=== PATIENT | male | born 1970 | race Hispanic/Latino ===

== ENCOUNTER 2020-02-05 06:50 | Inpatient (IN) ==
[2020-02-05] MEDS ORDERED: TYLENOL PO ONE (07:25)
[2020-02-05] MEDS ORDERED: MOTRIN PO ONE (07:29)
[2020-02-05 07:49] LABS: INFLUENZA A NEGATIVE (NEGATIVE); INFLUENZA B NEGATIVE (NEGATIVE)
--- NOTE | 2020-02-05 07:59 | Diag Imaging Result Doc PS360 ---
EXAM: CHEST-1 VIEW INDICATION: fever TECHNIQUE: One view COMPARISON: None. FINDINGS: There is elevation of the left hemidiaphragm. There is suggestion of mild atelectasis at the left lung base. There is no discrete pleural fluid collection or pneumothorax. The cardiomediastinal silhouette and central vasculature are grossly unremarkable. IMPRESSION: Suggestion of mild atelectasis at the left lung base. No definite acute pathology by plain radiograph, otherwise. Electronically signed by Nelson Alvarado 02/05/2020 7:57 AM
[2020-02-05 08:01] LABS: INR 1.15; PROTIME 15.3 Seconds (11.0-16.0)
[2020-02-05 08:02] LABS: AGAP 20; ALBUMIN 4.2 g/dL (3.5-5.0); ALKALINE PHOSPHATASE 82 U/L (32-122); BUN 8 mg/dL (8-22); CALCIUM 8.7 mg/dL (8.8-10.2); CHLORIDE 94 mmol/L (98-107); CK PROFILE 94 U/L (24-204); COSMO 273; CREATININE 0.8 mg/dL (0.7-1.2); ESTIMATED GFR > 60; GLUCOSE 149 mg/dL (70-104); GOT 33 U/L (10-34); GPT 26 U/L (10-44); POTASSIUM 4.3 mmol/L (3.5-5.1); SODIUM 136 mmol/L (136-145); TCO2 22 mmol/L (25-35); TOTAL PROTEIN 7.2 g/dL (6.3-8.3)
[2020-02-05 08:03] LABS: BASO# 0.01 X1000 (0.0-0.2); BASO% 0.1 % (0.0-0.8); EOS# 0.03 X1000 (0.0-0.7); EOS% 0.2 % (0.0-10.0); HEMATOCRIT 43.9 % (42.0-52.0); HEMOGLOBIN 14.9 g/dL (14.0-18.0); IMM GRAN# 0.06 X1000 (0.0-0.04); IMM GRAN% 0.4 % (0.0-0.5); LYMPH# 0.44 X1000 (1.2-3.4); LYMPH% 2.7 % (20.5-51.1); MCH 31.1 PG (27-31); MCHC 33.9 g/dL (33-37); MCV 91.6 FL (81-99); MONO# 0.07 X1000 (0.11-0.59); MONO% 0.4 % (1.7-9.3); MPV 10.5 FL (7.4-10.4); NEUT# 15.75 X1000 (1.4-6.5); NEUT% 96.2 % (42.2-75.2); PLT 160 X1000 (130-400); RBC 4.79 XMIL (4.7-6.1); RDW 12.6 % (11.5-14.5); WBC 16.36 X1000 (4.8-10.8)
[2020-02-05] MEDS ORDERED: NS 1,000 ML IV ONE ×2 (08:13→08:14)
[2020-02-05] MEDS ORDERED: ZOSYN 3.375 GM in NS 50 ML IV ONE (08:22)
[2020-02-05 08:31] LABS: MONO 2 % (1-9); SEGS 97 % (42-75)
--- NOTE | 2020-02-05 09:12 | Diag Imaging Result Doc PS360 ---
EXAM: CT ABD/PELVIS W/IV CONT ONLY INDICATION: rlq pain TECHNIQUE: This exam was performed using automated exposure control, adjustment of mA or kV according to patient size, and/or use of iterative reconstruction technique. COMPARISON: None. FINDINGS: There are calcified granulomata at the left lung base and there is left basilar scarring. There is a calcified pleural plaque at the left lung base. The gallbladder, liver, spleen, pancreas, adrenal glands, kidneys, and urinary bladder are essentially unremarkable. The appendix is significantly dilated measuring up to 1.5 cm in diameter and there is extensive periappendiceal inflammatory stranding consistent with acute appendicitis. There is nonloculated fluid around the appendix. No well-defined abscess or free abdominal gas is identified to indicate perforation on the current study. There are a few fluid-filled and mildly distended loops of small bowel throughout the abdomen consistent with ileus. The stomach is unremarkable. IMPRESSION: Acute appendicitis with no definite perforation on the current study. Electronically signed by Nelson Alvarado 02/05/2020 9:10 AM
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
[2020-02-05 12:45] LABS: URINE SOURCE CLEAN CATCH
[2020-02-05] MEDS: NS 1,000 ML IV SCH ×2 (12:48→23:23)
[2020-02-05] MEDS: ZOSYN 3.375 GM in NS 50 ML IV SCH ×3 (12:49→23:24)
[2020-02-05 12:55] LABS: BILIRUBIN URINE NEGATIVE (NEGATIVE); BLOOD URINE SMALL (NEGATIVE); COLOR YELLOW; GLUCOSE URINE NEGATIVE (NEGATIVE); KETONE URINE NEGATIVE (NEGATIVE); LEUKOCYTES URINE NEGATIVE (NEGATIVE); NITRITE URINE NEGATIVE (NEGATIVE); PROTEIN URINE 30 mg/dL (NEGATIVE); TURBIDITY URINE CLEAR (CLEAR); UR EPITHELIAL CELLS <10 /HPF (<10); URINE BACTERIA NEGATIVE /HPF; URINE WBC <10 /HPF (<10); UROBILINOGEN URINE NORMAL (NORMAL)
[2020-02-05 13:02] LABS: SP GRAVITY URINE < 1.005
[2020-02-05] MEDS ORDERED: DIPRIVAN 1% ONE (15:34)
[2020-02-05] MEDS ORDERED: FENTANYL ONE (15:34)
[2020-02-05] MEDS ORDERED: REGLAN ONE (19:41)
[2020-02-05] MEDS ORDERED: VERSED ONE (19:41)
[2020-02-05] MEDS ORDERED: PEPCID ONE (19:42)
[2020-02-05] MEDS ORDERED: LR 1,000 ML ONE (19:47)
[2020-02-05] MEDS ORDERED: MARCAINE 0.25% PF/EPI 1:200,000 ONE (19:47)
[2020-02-05] MEDS ORDERED: QUELICIN (DOSE) ONE (20:01)
[2020-02-05] MEDS ORDERED: ROBINUL ONE (20:01)
[2020-02-05] MEDS ORDERED: ZEMURON ONE ×2 (20:01→20:28)
[2020-02-05] MEDS ORDERED: ZOFRAN ONE (20:02)
[2020-02-05] MEDS ORDERED: XYLOCAINE-MPF 2% ONE (20:48)
[2020-02-05 21:27] LABS: URINE SOURCE CATH
[2020-02-05 21:30] LABS: BILIRUBIN URINE NEGATIVE (NEGATIVE); BLOOD URINE SMALL (NEGATIVE); COLOR YELLOW; GLUCOSE URINE NEGATIVE (NEGATIVE); KETONE URINE NEGATIVE (NEGATIVE); LEUKOCYTES URINE NEGATIVE (NEGATIVE); NITRITE URINE NEGATIVE (NEGATIVE); PH URINE 7.5; PROTEIN URINE 30 mg/dL (NEGATIVE); SP GRAVITY URINE 1.029; TURBIDITY URINE CLEAR (CLEAR); UROBILINOGEN URINE 2 mg/dL (NORMAL)
[2020-02-05 21:31] LABS: UR EPITHELIAL CELLS <10 /HPF (<10); URINE BACTERIA NEGATIVE /HPF; URINE RBC 20-40 /HPF (<10); URINE WBC <10 /HPF (<10)
--- NOTE | 2020-02-05 21:39 | OPERATIVE NOTE ---
PROCEDURE DATE: 02/05/2020 PREOPERATIVE DIAGNOSIS: Acute appendicitis. POSTOP DIAGNOSIS: Acute appendicitis. PROCEDURE: Laparoscopic converted to open appendectomy. SURGEON: Richy Lott MD. ANESTHESIA: General. ESTIMATED BLOOD LOSS: 100 mL. COMPLICATIONS: None apparent. SPECIMENS: Appendix. FINDINGS: The appendix was acutely inflamed with severe periappendiceal inflammation necessitating an open operation for safe removal. There was no gross pus or obvious perforation. TECHNIQUE: The patient was brought to the operating room and placed supine on the table. General anesthesia was induced. A Cuevas catheter was placed. He was prepped and draped in usual sterile fashion. 0.25% Marcaine with epinephrine was used to anesthetize our incisions. A 5 mm incision was made in the left lower quadrant. Entry into the peritoneal cavity was obtained under direct vision with the Optiview device. Pneumoperitoneum was established. The camera was inserted. There was no evidence of injury to underlying structures. He was placed in Trendelenburg and left rotation. An incision was made just above the umbilicus through his previous laparotomy scar. There were no adhesions in this area and the 12 mm port was placed under direct vision, another 5 mm incision and port were placed under direct vision in the lower suprapubic midline. I looked in the right lower quadrant and found the area of inflammation of the appendix. I was able to see the base of the appendix inserting into the cecum and it appeared normal. I dissected around the base and transected it with an Endo-LORENZO stapler. I then began mobilizing the appendix off of the cecum and retroperitoneum using hook cautery and the LigaSure device, however the visualization of the tip the appendix was unclear as it was matted under inflammatory rind. I could not get good visualization and mobilization without significant pulling on the tissue so I decided to go ahead and convert to an open procedure. I made an oblique incision in the right lower quadrant with a knife and carried this down through the subcutaneous tissue with cautery. The anterior fascia was opened with cautery. I did encounter the inferior epigastric vessel medially and ligated it proximally and distally with hemostats and 2-0 silk. I then opened the posterior fascia with cautery and entered the peritoneal cavity safely. I was able to reach in with my hand and grab the appendix in inflammatory area and I was able to lift it up and with blunt finger dissection sweep it off of the retroperitoneum some and then I incised the lateral peritoneal attachments over my finger with cautery until the appendix was lifted up, leaving just a small portion of the appendiceal mesentery. I went through this with the LigaSure device, removing the appendix. There was a branch of the appendiceal artery still bleeding and it was suture ligated with a hemostat and 2-0 silk tie and then a 3-0 silk [id number] stick tie. I then irrigated the area copiously with warm saline and suctioned this out. There appeared to be no further bleeding. There were no signs of any leakage from our staple line. All laparotomy pads were removed and I closed the posterior fascia and peritoneum with a running #1 Vicryl and the anterior fascia with a running #1 Maxon. The umbilical fascia was closed with a 0 Vicryl. The skin was closed with skin clips. There were no apparent complications. He was awakened in stable condition and transferred to the recovery room. cc: Richy Lott MD
[2020-02-05] MEDS ORDERED: ZOFRAN IV PRN (22:48)
[2020-02-05] MEDS: DILAUDID IV PRN (23:24)
[2020-02-05] MEDS ORDERED: ZOSYN ONE (23:24)
[2020-02-06] MEDS: ZOSYN 3.375 GM in NS 50 ML IV SCH ×4 (01:15→21:45)
[2020-02-06] MEDS: DILAUDID IV PRN ×4 (02:56→21:46)
[2020-02-06] MEDS: NS 1,000 ML IV SCH (09:23)
[2020-02-06] MEDS: NORCO-10 PO PRN ×2 (12:02→20:34)
[2020-02-06] MEDS ORDERED: ZOSYN ONE (15:42)
--- NOTE | 2020-02-06 17:36 | GENERAL SURGERY PROGRESS NOTE ---
DATE: 02/06/2020 SUBJECTIVE: The patient is doing better today. He denies significant pain, nausea, and vomiting. He has had his Cuevas out. He is tolerating clear liquid diet and he is hungry. He is voiding too. OBJECTIVE: vital signs: T-max 99.7 degrees, current temperature 98.6. Vital signs are stable. General: He is awake and alert in no acute distress. Gastrointestinal: Soft, appropriately tender. Incisional dressings are clean and dry. LABORATORY: His blood culture is positive for gram-negative mattie bacteremia. ASSESSMENT AND PLAN: A 49-year-old male status post open appendectomy now with gram-negative mattie bacteremia. He will remain in the hospital on Zosyn. We will advance his diet. cc: Richy Lott MD
[2020-02-07] MEDS: NS 1,000 ML IV SCH ×4 (00:45→23:37)
[2020-02-07] MEDS: DILAUDID IV PRN ×4 (01:28→23:35)
[2020-02-07] MEDS: ZOSYN 3.375 GM in NS 50 ML IV SCH ×4 (03:56→21:23)
[2020-02-07] MEDS: NORCO-10 PO PRN ×3 (06:52→21:24)
[2020-02-07 07:31] LABS: BASO# 0.01 X1000 (0.0-0.2); BASO% 0.1 % (0.0-0.8); EOS# 0.09 X1000 (0.0-0.7); HEMATOCRIT 41.1 % (42.0-52.0); HEMOGLOBIN 13.4 g/dL (14.0-18.0); IMM GRAN# 0.02 X1000 (0.0-0.04); IMM GRAN% 0.2 % (0.0-0.5); LYMPH# 0.85 X1000 (1.2-3.4); LYMPH% 9.2 % (20.5-51.1); MCH 30.7 PG (27-31); MCHC 32.6 g/dL (33-37); MCV 94.3 FL (81-99); MONO# 0.71 X1000 (0.11-0.59); MONO% 7.7 % (1.7-9.3); MPV 11.1 FL (7.4-10.4); NEUT# 7.53 X1000 (1.4-6.5); NEUT% 81.8 % (42.2-75.2); PLT 129 X1000 (130-400); RBC 4.36 XMIL (4.7-6.1); RDW 13.1 % (11.5-14.5); WBC 9.21 X1000 (4.8-10.8)
[2020-02-07 07:44] LABS: AGAP 10; BUN 4 mg/dL (8-22); CALCIUM 8.3 mg/dL (8.8-10.2); CHLORIDE 98 mmol/L (98-107); COSMO 264; CREATININE 0.7 mg/dL (0.7-1.2); ESTIMATED GFR > 60; GLUCOSE 110 mg/dL (70-104); POTASSIUM 3.7 mmol/L (3.5-5.1); SODIUM 133 mmol/L (136-145); TCO2 25 mmol/L (25-35)
--- NOTE | 2020-02-07 13:11 | GENERAL SURGERY PROGRESS NOTE ---
DATE: 02/07/2020 SUBJECTIVE: The patient is feeling better overall. He did have a high fever of 103 this morning, but that has come back down. He feels sore, but no severe pain. No nausea or vomiting. No chest pain or shortness of breath. No dysuria. He is tolerating his diet. OBJECTIVE: Vital Signs: T-max 103 degrees, current temperature 98.8 degrees, pulse 88, respirations 18, blood pressure 126/73, O2 saturation 92%. General: He is alert and oriented x3. No acute distress. CV: Regular rate and rhythm. Respiratory: Clear bilateral breath sounds. No work of breathing. Gastrointestinal: Soft, appropriately tender. Incisional dressings are dry. No surrounding erythema. LABORATORY DATA: White blood cell count 9.2, hemoglobin 13.4, hematocrit 41.1. Electrolytes are reviewed and unremarkable. ASSESSMENT AND PLAN: A 49-year-old male status post open appendectomy. He also has gram-negative mattie bacteremia. We are awaiting speciation. He is on Zosyn. He is on a regular diet. cc: Richy Lott MD
[2020-02-08] MEDS: NORCO-10 PO PRN ×2 (01:45→08:57)
[2020-02-08] MEDS: ZOSYN 3.375 GM in NS 50 ML IV SCH (03:52)
[2020-02-08] MEDS: DILAUDID IV PRN ×6 (05:20→22:25)
--- NOTE | 2020-02-08 08:13 | GENERAL SURGERY PROGRESS NOTE ---
DATE: 02/08/2020 SUBJECTIVE: The patient has no new complaints today other than some itching in one of his incisions. OBJECTIVE: T-max 100.3 degrees. Current temperature 98.7 degrees, pulse 84, respirations 17, blood pressure 114/66, and O2 saturation 87% this morning but 94% last night. This was on room air.General: He is awake and alert in no acute distress. Respiratory: No increased work of breathing. Gastrointestinal: Soft. Minimally tender. Incision is clean, dry, and intact. No erythema. No drainage. LABORATORY: None today. His previous blood cultures were positive for E. Coli on the . Repeat blood cultures yesterday are pending. ASSESSMENT AND PLAN: A 49-year-old male status post open appendectomy with E. Coli bacteremia. We are switching him to Levaquin due to the antibiotic sensitivities. When he is afebrile for 24 hours, then we will switch him to oral Levaquin, and discharge him home to finish a course for 7 more days. cc: Richy Lott MD
[2020-02-08] MEDS: LEVAQUIN 750 MG/D5W 750 MG/150 ML IVPB IV SCH (08:14)
--- NOTE | 2020-02-08 10:04 | Diag Imaging Result Doc PS360 ---
CHEST-2 VIEWS - 02/08/2020 INDICATION: hypoxia COMPARISON: 02/05/2020 FINDINGS: There are worsening ill-defined interstitial infiltrates in the lung bases bilaterally. There are trace bilateral pleural effusions. Stable left hemidiaphragm elevation. Stable cardiomegaly. IMPRESSION: Worsening ill-defined infiltrates in the lung bases bilaterally. Trace pleural effusions. Electronically signed by Kp Alanis 02/08/2020 10:01 AM
[2020-02-09] MEDS: DILAUDID IV PRN ×2 (05:41→12:06)
[2020-02-09] MEDS: LEVAQUIN 750 MG/D5W 750 MG/150 ML IVPB IV SCH (07:45)
--- NOTE | 2020-02-09 08:00 | Diag Imaging Result Doc PS360 ---
EXAM: CHEST-2 VIEWS 02/09/2020 HISTORY: hypoxia TECHNIQUE: Two views the chest COMMENT: There is increased interstitial opacity in both lung bases with denser areas of consolidation in the medial lower lobes particularly the left lower lobe. There is loculated pleural fluid and/or thickening on the left. These findings were also present on 02/08/2020. There has been some clearing of the right costophrenic sulcus compared to the previous study. Compared to 02/05/2020 the basilar opacities are much worse. IMPRESSION: Pulmonary edema and/or pneumonia. Left pleural effusion. Electronically signed by Hugh Paiz 02/09/2020 7:57 AM
[2020-02-09] MEDS ORDERED: PERCOCET-10 PO PRN (12:40)
--- NOTE | 2020-02-09 13:02 | GENERAL SURGERY PROGRESS NOTE ---
DATE: 02/09/2020 SUBJECTIVE: The patient continues to feel better and better. He denies nausea, vomiting, severe pain, chest pain, shortness of breath, or any significant cough. He is off of his supplemental oxygen. He is eating well and having bowel function. OBJECTIVE: He is afebrile. Vital signs are stable.General: He is awake, alert, no acute distress. Gastrointestinal: Soft, minimally tender. Incision is clean, dry, and intact with scant serous drainage. No erythema. Respiratory: Clear bilateral breath sounds. No work of breathing. CV: Regular rate and rhythm. IMAGING: Chest x-ray this morning shows increased interstitial opacity in both lung bases with denser areas of consolidation in the medial lower lobes, especially on the left. There is loculated pleural fluid and/or thickening on the left, which was also present yesterday. There is some clearing of the right costophrenic sulcus compared to the prior study. Compared to 02/05/2020, the basilar opacities are much worse. These findings were interpreted by the radiologist. On my review, there does not be appear to be significant changes in his chest x-ray now compared to his admission, but again that is my own interpretation and not that of the radiologist. ASSESSMENT AND PLAN: A 49-year-old male status post open appendectomy. He may have perioperative pneumonia or atelectasis and effusions. We will order a CT scan of the chest today for further clarification. He is really doing quite well clinically and I am inclined to send him home within the next 24 hours on oral antibiotics if his CT scan is not too concerning. cc: Richy Lott MD
--- NOTE | 2020-02-09 13:51 | Diag Imaging Result Doc PS360 ---
EXAM: CT THORAX W/WO CONTRAST INDICATION: loculated pleural fluid/thickening, worsening cxr TECHNIQUE: This exam was performed using automated exposure control, adjustment of mA or kV according to patient size, and/or use of iterative reconstruction technique. COMPARISON: None. FINDINGS: There are patchy airspace infiltrates involving both lower lobes and the inferior aspect of the left upper lobe consistent with multilobar pneumonia. There are bilateral small pleural effusions. The fluid on the left appears to be slightly loculated including trace fissural fluid that is somewhat nodular in the left major fissure. There are calcified pleural plaques at the left lung base and at the left apex. There is also a component of atelectasis at both lung bases. There is cardiomegaly. There are mildly prominent hilar lymph nodes are probably reactive. Limited views of the upper abdomen are essentially unremarkable. IMPRESSION: 1.Bilateral multilobar pneumonia, mainly involving both the right and left lower lobes. 2.Bilateral small pleural effusions with partial loculation on the left. 3.Calcified pleural plaques on the left. 4.Cardiomegaly. Electronically signed by Nelson Alvarado 02/09/2020 1:48 PM
[2020-02-09 15:37] VITALS: BP 134/69
--- NOTE | 2020-02-11 15:38 | DISCHARGE SUMMARY ---
ADMISSION DATE: 02/05/2020 DISCHARGE DATE: 02/09/2020 ADMITTING PHYSICIAN: Nancy Villatoro. ADMITTING DIAGNOSIS: Acute appendicitis without obvious perforation. DISCHARGE DIAGNOSES: 1. Acute ruptured appendicitis. 2. Hospital-acquired pneumonia. 3. Escherichia coli bacteremia. HOSPITAL COURSE: The patient was admitted with a 2-day history of right lower quadrant pain, fever, nausea and vomiting. Initial imaging including a chest x-ray and abdominal pelvis CT scan showed mild atelectasis in the left lung base, but no definite acute pathology in the lung and acute appendicitis without definite perforation on CT scan. He underwent laparoscopic converted to open appendectomy on 02/05/2020. For full details of the operation, please see the dictated operative report. Postoperatively, he felt significantly better. On postop day 1, he had no significant pain nausea or vomiting. He was voiding and tolerating a clear liquid diet. His maximum temperature was 99.7 degrees, and other vital signs are stable. His incisions looked good. He was noted to have a positive blood culture for gram-negative rods. He remained on Zosyn. The next day, he was noted to have a fever up to 103. Otherwise, he had no significant pain nausea or vomiting. No chest pain. No shortness of breath. The next day on 02/08/2020 he did have some hypoxia in the morning time and a chest x-ray showed worsening ill-defined infiltrates in bilateral lung bases and trace pleural effusions. Of note his white blood cell count on 02/06 did return to normal. We switched him to Levaquin due to his E coli bacteremia being sensitive to Levaquin. Then on 02/09/2020, another chest x-ray showed pulmonary edema and/or pneumonia with denser consolidation in the medial lower lobes, particularly in the left lower lobe. A CT scan of the chest was ordered, which showed bilateral multilobar pneumonia, mainly involving the right and left lower lobes. There were small pleural effusions and a partial loculation on the left and calcified pleural plaques on the left. However, clinically he was doing much better. He had been weaned off his oxygen. He was having no further hypoxia. He had no short of breath or chest pain. He had no fever. He was eating a regular diet. His wounds were healing well and he was stable for discharge. FOLLOWUP APPOINTMENT: Dr. Lott in 1 week. DISCHARGE INSTRUCTIONS: He was instructed not to lift anything heavy. He may eat a regular diet as tolerated. He may shower and he should take his discharge medications including antibiotics especially to cover for the pneumonia. DISCHARGE MEDICATIONS: Include Levaquin 750 mg p.o. daily for 5 days, Zyvox 600 mg p.o. q. 12 hours x5 days and Percocet 10 mg 1 p.o. q. 6 hours p.r.n. pain. cc: Richy Lott MD
== END 2020-02-09 18:34 | disposition home or self-care (01) | DRG 338 ==
LOC: P.ED 06:50 → 4N 09:34
PROVIDERS: ADMIT Surgery; ATTEND Surgery